=== PATIENT | female | born 1930 | race Hispanic/Latino ===

== ENCOUNTER 2017-04-19 08:34 | Emergency (ER) | payer MEDICARE ==
[2017-04-19 08:55] VITALS: BP 153/63
[2017-04-19] MEDS ORDERED: MORPHINE IM ONE ×2 (10:45→10:52)
[2017-04-19] MEDS ORDERED: MORPHINE ONE ×2 (10:53→11:01)
[2017-04-19 11:26] LABS: Bilirubin,Urine NEG (Negative); Blood,Urine NEG (Negative); Color,Urine Yellow (Yellow); Mucus,Urine FEW /HPF; Protein,Urine <15 mg/dL mg/dL (Negative); RBC,Urine < 1.0 /HPF (0.0-6.0)
--- NOTE | 2017-04-19 12:04 | Emergency Department Report ---
HPI - General Chief Complaint: Back Pain/Injury Time Seen by Provider: 04/19/17 09:39 - HPI HPI: The patient is a 87-year-old female with a history of chronic low back pain secondary to arthritis for the past 2 years, who presents for evaluation of recurrence of her back pain. The patient and her son report recurrence of back pain yesterday evening, greater than 12hrs prior to my evaluation, currently 8/ 10 in severity, sharp in quality, exacerbated with bending over or sitting. The patient states that her pain is consistent with an in the same location as her long-standing chronic low back pain. The patient denies blunt trauma to the back, fall, fever, chills, night sweats, saddle anesthesia, paresthesias, numbness or tingling in the legs, leg weakness, urine or bowel incontinence or retention, difficulty ambulating, or other focal neurological deficits. The patient also denies redness or swelling to the back, IV drug use, history of cancer. ED Past Medical Hx - Past Medical History Previous Medical History?: Yes Hx Hypertension: Yes Hx Heart Attack/AMI: Yes Hx Diabetes: Yes (new onset 2 months ago after pancreatitis/MD ARGUELLO'cira meds) Additional medical history: pancreatitis, - Surgical History Past Surgical History?: Yes Hx Coronary Stent: Yes (2010) Hx Cholecystectomy: Yes Additional Surgical History: right knee replacemnet - Social History Smoking Status: Never Smoker Substance Use Type: None - Medications Home Medications: Home Medications Medication Instructions Recorded Confirmed Last Taken Type Carvedilol [Coreg] 6.25 mg PO BID 07/03/13 04/19/17 04/19/17 History Clopidogrel Bisulfate [Plavix] 75 mg PO DAILY 07/03/13 04/19/17 04/19/17 History Levothyroxine [Synthroid] 50 mcg PO QAM 07/03/13 04/19/17 04/19/17 History Aspirin [Aspirin BABY CHEW TAB] 81 mg PO QDAY 12/29/13 04/19/17 04/19/17 History Simvastatin 40 mg PO QDAY 12/29/13 04/19/17 04/19/17 History Aspirin 325 mg PO QDAY 04/19/17 04/19/17 04/19/17 History HYDROcodone/APAP 7.5-325 [[place] 1 each PO Q8HR PRN #14 tablet 04/19/17 Unknown Rx 7.5/325] Hydroxyurea [Hydrea] 500 mg PO DAILY 04/19/17 04/19/17 04/19/17 History Metformin HCl [Metformin HCl ER] 500 mg PO QDAY 04/19/17 04/19/17 04/19/17 History ED Review of Systems ROS: Stated complaint: BACK PAIN Other details as noted in HPI Constitutional: denies: fever ENT: denies: throat or neck pain Respiratory: denies: cough, shortness of breath Cardiovascular: denies: chest pain Endocrine: denies unexplained weight loss or gain Gastrointestinal: denies: abdominal pain, nausea Genitourinary: denies: dysuria Musculoskeletal: reports back pain denies: leg swelling Skin: denies: rash Neurological: denies: headache Hematological/Lymphatic: denies: easy bleeding or easy bruising Psych: denies sadness or hopelessness Physical Exam - Physical Exam Vital Signs: Vital Signs 04/19/17 08:44 Temperature 97.8 F Pulse Rate 69 Respiratory 18 Rate Blood Pressure 153/63 O2 Sat by Pulse 96 Oximetry Physical Exam: General: well-nourished, well-developed, no acute distress Head: Normocephalic, atraumatic Eyes: normal sclera ENT: Mucous membranes are pink and moist Neck: trachea midline, neck supple, No neck stiffness, no cervical adenopathy Respiratory: Breath sounds equal bilaterally, no wheezing, rales, or rhonchi Cardio: S1 and S2 present, no murmurs, rubs, gallops, capillary refill is brisk Abdomen: Normoactive bowel sounds, soft abdomen, no rigidity, no guarding or rebound tenderness Musc: Tenderness to palpation present to right lumbar paraspinal musculature, normal active range of motion at the hips intact, no spinous step-off or obvious deformity, ipsi-lateral and contralateral straight leg raise tests are negative. On extremity testing, compartments are soft and pliable, no obvious gross motor strength deficit, 5+ motor strength, including extension of the great toe bilaterally, no muscular atrophy, spasticity, fasciculations, or clonus, no obvious gross sensation deficit including web space between 1st and 2nd toes, reflexes 2+ & symmetric on DTR testing at the knee and ankle joints, distal pulses intact Skin: No rash Neuro: no facial drooping, normal speech Psych: Normal affect ED Course Vital Signs 04/19/17 08:44 Temperature 97.8 F Pulse Rate 69 Respiratory 18 Rate Blood Pressure 153/63 O2 Sat by Pulse 96 Oximetry ED Medical Decision Making - Medical Decision Making The patient was seen and examined by myself. The patient is placed on a cardiac surgeon and continuous pulse ox. On initial evaluation, the patient was found to be in no distress. No findings on exam concerning for cauda equina syndrome, spinal stenosis, or epidural abscess. As the patient has no midline tenderness on exam, no neuro deficits, and no findings concerning for emergent etiology of their back pain, imaging is not indicated at this time. Nonetheless , CT scan and MRI of the back was offered to the patient and she and her son refuse. They stated that they stay with follow-up with the patient's neurosurgeon outpatient for repeat imaging. The patient is given and IM dose of morphine. The patient was reevaluated and reported that their pain significantly improved. The patient is stable for discharge with outpatient follow-up. The patient is given follow-up and return instructions. The patient expressed understanding and agreed with the plan. The patient is discharged in stable condition. Critical care attestation.: If time is entered above; I have spent that time in minutes in the direct care of this critically ill patient, excluding procedure time. ED Disposition Clinical Impression: Acute right-sided low back pain without sciatica Disposition: DC-01 TO HOME OR SELFCARE Is pt being admited?: No Does the pt Need Aspirin: No Condition: Stable Instructions: Low Back Strain (ED), Chronic Back Pain (ED), Back Pain (ED) Additional Instructions: Do not take more than the prescribed dose of [place] pain medicine, or combine or take the pain medicine prescribed to you today with other pain medicine, sleeping medicine, anxiolytics such as ativan, valium, or xanax, other sedatives, or with alcohol, as doing so may cause central nervous system sedation and respiratory depression, and potentially cause you to stop breathing and . Additionally, do not drive a vehicle, operate heavy machinery, or engage in any activity that would cause harm to yourself or others after taking the pain medicine prescribed to you. Prescriptions: HYDROcodone/APAP 7.5-325 [[place] 7.5/325] 1 each PO Q8HR PRN #14 tablet PRN Reason: Pain Referrals: PRIMARY CARE, [Primary Care Provider] - 3-5 Days ROWAN RUIZ MD [Staff Physician] - 3-5 Days Time of Disposition: 11:57
== END 2017-04-19 12:20 | disposition home or self-care (01) ==
LOC: ED 08:34
DX: M54.5 Low back pain (principal); G89.29 Other chronic pain; I10 Essential (primary) hypertension; I25.2 Old myocardial infarction; E11.9 Type 2 diabetes mellitus without complications; Z90.49 Acquired absence of other specified parts of digestive tract; Z95.818 Presence of other cardiac implants and grafts; Z96.651 Presence of right artificial knee joint; Z88.1 Allergy status to other antibiotic agents
CPT/HCPCS: 81001; 96372; 99284; J2270